=== PATIENT | male | born 1995 | race African-American/Black ===

== ENCOUNTER 2017-12-19 16:00 | Emergency (ER) | payer OTHER ==
[2017-12-19] MEDS: LIDOCAINE WITH 8.4% SOD BICARB 3 ML DISP.SYRIN. INJ ×2 (17:01)
[2017-12-19] MEDS: DIPHTH,PERTUSS(ACELL),TET TOX 0.5 ML DISP.SYRIN. VAX IM ×2 (17:04)
== END 2017-12-19 17:58 | disposition home or self-care (01) ==
LOC: ER 16:00
DX: S61.210A Laceration without foreign body of right index finger without damage to nail, initial encounter (principal); W26.8XXA Contact with other sharp object(s), not elsewhere classified, initial encounter; Y93.89 Activity, other specified; Y92.89 Other specified places as the place of occurrence of the external cause; Y99.8 Other external cause status
CPT/HCPCS: 12002; 90471; 90715; 99283-25